=== PATIENT | female | born 1995 | race Two or more races ===

== ENCOUNTER 2017-11-02 23:09 | Emergency (ER) | payer MEDICAID, OTHER ==
[~2017-11-02] VITALS: Ht 172.7 cm; Wt 59.0 kg
[2017-11-02] MEDS ORDERED: HYDROCODONE/APAP 5/325MG 1 EACH TABLET ONE (23:25)
[2017-11-02] MEDS ORDERED: HYDROCODONE/APAP 5/325MG 1 EACH TABLET PO ONE (23:30)
--- NOTE | 2017-11-03 03:07 | NUR ---
ADVICE PT NOT TO DRIVE OR OPERATE ANY MACHINERY DUE TO PT WAS GIVEN NARCOTIC MEDICINE. PT VERBALIZE UNDERSTANDING.
[2017-11-03 03:08] VITALS: BP 116/61
== END 2017-11-03 03:09 | disposition home or self-care (01) ==
LOC: ER 23:10
DX: S66.911A Strain of unspecified muscle, fascia and tendon at wrist and hand level, right hand, initial encounter (principal); S50.01XA Contusion of right elbow, initial encounter; F17.210 Nicotine dependence, cigarettes, uncomplicated; W18.30XA Fall on same level, unspecified, initial encounter; Y93.89 Activity, other specified; Y92.89 Other specified places as the place of occurrence of the external cause; Y99.8 Other external cause status
CPT/HCPCS: 29125; 73080; 73110; 99284; A4606; Z7610